=== PATIENT | male | born 1950 | race Caucasian/White ===

== ENCOUNTER 2020-10-26 14:08 | Observation (INO) | payer MEDICARE, SELFPAY ==
[2020-06-22 18:54] VITALS: BMI 49.3
[2020-10-26] VITALS (8 sets, daily range): BP systolic 138–163; BP diastolic 85–91; PULSE 94–108; RESP 18–20; TEMP 36.3–37.1; O2SAT 95–98; BMI 45.0; BMI 43.9
--- NOTE | 2020-10-26 14:24 | CT_ITS ---
STUDY: CTA HEAD AND NECK WITH CONTRAST REASON FOR EXAM: Male, 70 years old. Dizziness, weakness and vertigo today. Hx hypertension, diabetes. RADIATION DOSAGE (If Supplied By Facility): CTDIvol = ( 32.17 ) mGy, DLP = ( 1108.90 ) mGycm TECHNIQUE: CT angiography was performed with a multi-detector CT scanner. Data acquisition was obtained from the skull base through the vertex following intravenous administration of IV 100mL Isovue-370. MIP images were reconstructed from the axial data set. Post-processing of the angiographic images was performed, with multiplanar reformation and 3D reconstruction. Individualized dose optimization techniques were used for this CT. COMPARISON: No relevant priors. FINDINGS: There is calcified plaque formation of the right cavernous carotid artery, without a cross-sectional luminal stenosis. There is calcified plaque formation of the left cavernous carotid artery, without a cross-sectional luminal stenosis. Normal right A1 segments of the anterior cerebral artery. Normal left A1 segments of the anterior cerebral artery. Normal bilateral A2 segments of the anterior cerebral arteries. Normal right M1 and M2 segments of the middle cerebral arteries, with a normal M1 bifurcation. Normal left M1 and M2 segments of the middle cerebral arteries, with a normal M1 bifurcation. Normal right posterior communicating artery (PCOM). Normal left posterior communicating artery (PCOM). Normal basilar artery with a normal basilar bifurcation. The visualized bilateral superior cerebellar (SCA) arteries are normal. Normal bilateral posterior cerebral arteries. RIGHT CAROTID ARTERIES: Normal right common carotid artery (CCA). There is mild atherosclerotic plaque formation with minimal narrowing of the right carotid bulb. Normal origin of the right internal carotid (ICA) artery without a hemodynamically significant stenosis. Normal visualized cervical portion of the right internal carotid artery. LEFT CAROTID ARTERIES: Normal left common carotid artery (CCA). There is mild atherosclerotic plaque formation with minimal narrowing of the left carotid bulb. Normal origin of the left internal carotid (ICA) artery without a hemodynamically significant stenosis. Normal visualized cervical portion of the left internal carotid artery. VERTEBRAL ARTERIES: Normal bilateral vertebral arteries. IMPRESSION: CTA head: No large vessel occlusion. CTA NECK: No occlusion or significant stenosis. Mild atherosclerotic plaque. Electronically Signed: Michelle Gonzalez MD at 15:53 EST Tel , Service support , STUDY: CT BRAIN WITHOUT CONTRAST REASON FOR EXAM: Male, 70 years old. Dizziness, weakness and vertigo today. Hx hypertension, diabetes. RADIATION DOSAGE (If Supplied By Facility): CTDIvol = ( 44.99 ) mGy, DLP = ( 762.36 ) mGycm TECHNIQUE: Transaxial CT imaging of the brain was performed without administration of intravenous contrast material. Individualized dose optimization techniques were used for this CT. COMPARISON: No relevant priors. FINDINGS: Normal size ventricles and extra-axial spaces for the patient''s age. Normal white matter tracts of the cerebral hemispheres. There are bilateral basal ganglia punctate hyperdensities which are likely related to senescent calcifications.. There is no intracranial hemorrhage. There are no findings of an acute ischemic infarction. Normal visualized paranasal sinuses. CT/CTA Head AND Neck W/ Contrast IMPRESSION: No acute intracranial abnormality. Electronically Signed: Michelle Gonzalez MD at 15:55 EST Tel , Service support ,
--- NOTE | 2020-10-26 14:24 | ED.VIS.GEN ---
History of Present Illness Chief Complaint: Weakness Informant: Patient Onset: Today Context: Sudden Onset Current Severity: Mild Maximum Severity: Moderate Narrative: Patient presents secondary to vertigo and vomiting. Patient states he was sitting in his chair talking on the phone when he started feeling everything was moving and he became nauseated. He states he got up to check his blood sugar but his meter was not working correctly. He called his son who advised him to call the ambulance. Patient states when he was being placed into the ambulance he did have vomiting. He states his symptoms currently feels they are improving. He denies chest pain or headache. He denies palpitations. - Past Medical History (1) Diabetes Status: Chronic (2) GERD (gastroesophageal reflux disease) Status: Chronic (3) Osteoarthritis Status: Chronic (4) Hypertension Status: Chronic Past Medical History - Allergies and Home Meds Allergies/Adverse Reactions: Allergies Penicillins Allergy (Severe, Verified 10/26/20 14:12) rash Primary Care Physician: NOT,DEFINED [NON-STAFF] - Prior records reviewed: Yes Smoking Status: Never smoker Review of Systems General: Denies: Chills, Fever Eyes: Denies: Visual changes - bilaterally ENT: Denies: Bilateral ear pain Cardiovascular: Denies: Chest pain, Palpitations Respiratory: Denies: Dyspnea, Cough Gastrointestinal: Reports: Nausea, Vomiting. Denies: Abdominal pain Genitourinary: Denies: Dysuria Musculoskeletal: Denies: Swelling, Extremity Pain Neurological: Reports: Weakness - Generalized weakness. Denies: Headache Hematologic: Denies: Easy bruising, Easy bleeding Allergy: Denies: Uticaria Physical Exam Vital Signs/Narrative: Vital Signs Temp Pulse Resp BP Pulse Ox 10/26/20 14:22 96 10/26/20 14:09 97.4 F L 94 20 H 163/91 H 98 Inital Vital Signs reviewed: Yes General: Well nourished, Well developed Head: Normocephalic Eyes: Perrl, EOMI ENT: Moist mucous membranes Neck: Supple Cardiovascular: Regular rate, Regular rhythm Respiratory: No distress, CTA bilaterally Abdomen: Soft, Nontender, Hypoactive bowel sounds Extremities: Nontender Skin: Normal color Neurological: Alert, Oriented x3, Normal Strength, Normal Sensation Psychological: Normal affect Diagnostic/Tx/Re-eval Impressions Head/Neck CTA 10/26/20 14:24 IMPRESSION: No acute intracranial abnormality. Electronically Signed: Michelle Gonzalez MD at 15:55 EST Tel , Service support , 10/26/20 14:24 CTA Head AND Neck W/ Contrast [CT] Stat Laboratory Results 10/26/20 10/26/20 14:25 14:25 WBC 9.2 RBC 4.54 L Hgb 13.4 Hct 41.5 MCV 91.4 MCH 29.5 MCHC 32.3 RDW Std Deviation 45.0 H RDW Coeff of James 13.4 Plt Count 247 MPV 10.9 Immature Gran % (Auto) 0.400 Neut % (Auto) 76.2 H Lymph % (Auto) 15.2 L [place] % (Auto) 6.1 Eos % (Auto) 1.7 Baso % (Auto) 0.4 Absolute Neuts (auto) 7.0 Absolute Lymphs (auto) 1.40 Nucleated RBC % 0 Sodium 139 Potassium 3.7 Chloride 106 Carbon Dioxide 26.0 Anion Gap 7 BUN 33 H Creatinine 1.29 Estim Creat Clear Calc 55.94 Est GFR (MDRD) Af Amer 71 Est GFR (MDRD) Non-Af 58 L BUN/Creatinine Ratio 25.6 H Glucose 215 H Calcium 8.5 Troponin I < 0.015 - EKG Initial EKG Interpretation: Sinus Rhythm - Sinus at 96 with no acute ischemia. - Medical Decision Making Patient was given a dose of Zofran here. Test results are reviewed with him. I do have concern for central vertigo as the patient had no preceding movement that should have triggered vertigo. Patient was able to get up and ambulate to the restroom here but states he does feel somewhat tipsy still it is not back to his normal baseline. In light of this I will speak with hospitalist regarding admission for MRI and further TIA/stroke work-up. ED Disposition - Plan for ED Patient: Disposition: Acute Care [facility] Diagnosis: Vertigo Referrals: NOT,DEFINED [NON-STAFF] -
[2020-10-26] MEDS: Ondansetron 4 MG/2 ML Vial IV (14:36)
[2020-10-26 14:42] LABS: Basophil# 0.04 X10^3/uL; Basophil% 0.4 % (0-1); Eosinophil# 0.16 X10^3/uL; Eosinophils% 1.7 % (0-5); Hematocrit 41.5 % (40-54); Hemoglobin 13.4 g/dL (13.0-16.5); Lymphocyte % 15.2 % (19-41); Mean Corp Hgb Conc 32.3 g/dL (32-36); Mean Corpuscular Hgb 29.5 pg (27.0-32.0); Mean Corpuscular Volume 91.4 fL (80-94); Mean Platelet Vol. 10.9 fl (6.2-12.0); Monocyte# 0.56 X10^3/uL; Monocyte% 6.1 % (0-10); NRBC Flagged by Analyzer 0 % (0-5); Neutrophil # 7.02 X10^3/uL (2.7-7.7); Neutrophil % 76.2 % (47-70); Platelet Count 247 K/mm3 (150-450); RBC Distribution Width CV 13.4 % (11.6-14.6); Red Blood Count 4.54 M/mm3 (4.6-6.2); White Blood Count 9.2 K/mm3 (4.4-11.0)
[2020-10-26 14:58] LABS: Anion Gap 7 (5-15); BUN 33 mg/dL (7-18); BUN/Creat Ratio 25.6 RATIO (10-20); Calcium,Total 8.5 mg/dL (8.5-10.1); Chloride 106 mmol/L (98-107); Creatinine, Serum 1.29 mg/dL (0.70-1.30); EST Glomerular Filtration Rate 58 mL/min (>60); Est Glom Filt Rate - Afr Amer 71 mL/min (>60); Estimated Creatinine Clearance 55.94 ml/min; Glucose 215 mg/dL (74-106); Potassium 3.7 mmol/L (3.5-5.1); Sodium Level 139 mmol/L (136-145)
--- NOTE | 2020-10-26 16:48 | MRI_ITS ---
STUDY: MRI BRAIN WITHOUT CONTRAST REASON FOR EXAM: Male, 70 years old. Dizziness and vertigo. TECHNIQUE: Standardized multiplanar fat and water weighted pulse sequences were obtained. COMPARISON: CT brain without contrast and CTA head and neck same date. FINDINGS: No acute infarct, hemorrhage, or mass. Small in size and number chronic FLAIR/T2 hyperintensities in the cerebral white matter. Normal brain volume. No midline shift or hydrocephalus. Major flow voids preserved. Paranasal sinuses, mastoid air cells and middle ears with no air-fluid levels. Calvarium unremarkable. Extracranial soft tissues unremarkable. MRI/Brain without Contrast IMPRESSION: No acute findings. Mild chronic microangiopathic change in the white matter. Electronically Signed: Shelton Martin, at 22:21 EST Tel , Service support ,
--- NOTE | 2020-10-26 16:54 | PCS.PANDOC ---
PANDEMIC DOCUMENTATION INITIATED: Date: 10/26/2020 Time: 3076
[2020-10-26] MEDS: 0.9% Normal Saline 1,000 ML 100 ML IV (17:25)
--- NOTE | 2020-10-26 17:28 | PCM.HP.STD ---
History of Present Illness Date of Admission: 10/26/20 Chief Complaint: Vertigo The patient is a 70 year old M with a PMH as below who presents from home with vertigo. He says that he was sitting in his chair talking on the phone when he started to feel dizzy, he also felt flushed. He said that everything was moving around him and he came nauseated and had an episode of emesis. He called the EMS and was brought into the hospital, when he arrived here he still feeling dizzy but he was able to ambulate to the bathroom on his own and was somewhat steady. CTA of the head and neck was unremarkable. Blood sugar on admission is 215 and his other lab work was also unremarkable. He does also complain of his right lower extremity being more swollen and painful than his left lower extremity. He says that swelling is normal for him but not this much. He also has some dyspnea on exertion but no chest pain, cough, shortness of breath. His dyspnea on exertion has been going on for little over a month now. His not having any orthopnea but he lives alone she is not sure if he snores and he says that he gets restful sleep. Past Medical History Past Medical History (Chronic Problems): Chronic Problems (Last Updated 06/22/20 @ 18:59 by Beba Ordaz NP, PELLETIZER OPERATOR-C) GERD (gastroesophageal reflux disease) (Chronic) Hypertension (Chronic) Diabetes (Chronic) Osteoarthritis (Chronic) Medical History: Medical History (Last Updated 06/22/20 @ 18:59 by Beba Ordaz NP, PELLETIZER OPERATOR-C) Diabetes type 2, uncontrolled E11.65 GERD (gastroesophageal reflux disease) K21.9 Hypertension I10 Allergies Penicillins Allergy (Severe, Verified 10/26/20 14:12) rash Home Medications: Ambulatory Orders Medication Instructions Recorded amlodipine 10 mg tablet 10 mg PO DAILY 06/22/20 atorvastatin 20 mg tablet 20 mg PO DAILY 06/22/20 metformin 500 mg tablet 500 mg PO BID 06/22/20 pioglitazone 45 mg tablet 45 mg PO DAILY 06/22/20 valsartan 320 1 tab PO DAILY 06/22/20 mg-hydrochlorothiazide 25 mg tablet Acetaminophen [Tylenol Extra 1,000 mg PO DAILY PRN PRN 10/26/20 Strength] Aspirin [Aspirin, Baby] 81 mg PO DAILY@0800 10/26/20 Naproxen Sodium [Aleve] 440 mg PO DAILY PRN PRN 10/26/20 Pantoprazole Sodium [Protonix] 40 mg PO DAILY 10/26/20 Surgical History: Surgical History (Last Updated 06/22/20 @ 19:00 by Beba Ordaz NP, PELLETIZER OPERATOR-C) workman comp for abd laceration Smoking Status: Never smoker Tobacco Use: Non-smoker Alcohol: None Drugs: None - *Family History Maternal Family History: Family History (Last Updated 06/22/20 @ 19:01 by Beba Ordaz NP, PELLETIZER OPERATOR-C) Mother Heart disease Hypertension Other CAD (coronary artery disease) COPD (chronic obstructive pulmonary disease) Diabetes Lung cancer Review of Systems Constitutional: Denies: Chills, Fever, Weight Change Eyes: Reports: - - Dizziness HEENT: Denies: Head Aches, Sinus Congestion, Sinus Drainage Cardiovascular: Reports: Edema. Denies: Chest Pain, Palpitations Respiratory: Reports: Shortness of breath upon exertion. Denies: Cough, Shortness of Breath, Shortness of breath at rest, Sputum production Gastrointestinal: Denies: Abdominal Pain, Nausea, Vomiting Genitourinary: Denies: Dysuria Musculoskeletal: Denies: Joint Pain, Joint Tenderness Skin: Denies: Rash, Wounds Neurological: Denies: Focal weakness, Numbness, Tingling Psychiatric: Denies: Anxiety, Depression Hematologic/ Lymphatic: Denies: Easy Bruising, Easy Bleeding VTE Information - Inpt Only VTE Present on Admission: No Patient Problems: Active and Suspected Problems (Last Updated 06/22/20 @ 18:59 by Beba Ordaz NP, PELLETIZER OPERATOR-C) Vertigo (Acute) - Physical Exam Vitals/I&O's: Vital Signs Temp Pulse Resp BP Pulse Ox 98.1 F 100 20 H 150/85 H 95 10/26/20 16:57 10/26/20 16:57 10/26/20 16:57 10/26/20 16:57 10/26/20 16:57 Oxygen Delivery Method Room Air Weight: 315 lb Body Mass Index (BMI) 43.9 General: Alert, Oriented x3, Cooperative, No apparent distress HEENT: Atraumatic, PERRLA, EOMI, Normocephalic Oral: Moist Mucosa Neck: Supple, No JVD Lungs: Clear to auscultation, Normal air movement, No rhonchi, No wheeze, No rales Cardiovascular: Regular rate, Regular Rhythm, Normal S1, Normal S2, No murmurs Abdomen: Soft, Non Tender, Non-Distended, No Hepato-splenomegaly, Obese Extremities: Capillary Refill Less than 3 Seconds, Edema - 1+ pitting edema bilaterally Skin: No rashes, No breakdown Neurological: Neuro grossly intact, Sensory exam intact to light touch and pain Psych/Mental Status: Normal Affect, Appropriate Laboratory Results 10/26/20 14:25: WBC 9.2, RBC 4.54 L, Hgb 13.4, Hct 41.5, MCV 91.4, MCH 29.5, MCHC 32.3, RDW Std Deviation 45.0 H, RDW Coeff of James 13.4, Plt Count 247, MPV 10.9, Immature Gran % (Auto) 0.400, Neut % (Auto) 76.2 H, Lymph % (Auto) 15.2 L, [place] % (Auto) 6.1, Eos % (Auto) 1.7, Baso % (Auto) 0.4, Absolute Neuts (auto) 7.0, Absolute Lymphs (auto) 1.40, Nucleated RBC % 0 10/26/20 14:25: Sodium 139, Potassium 3.7, Chloride 106, Carbon Dioxide 26.0, Anion Gap 7, BUN 33 H, Creatinine 1.29, Estim Creat Clear Calc 55.94, Est GFR (MDRD) Af Amer 71, Est GFR (MDRD) Non-Af 58 L, BUN/Creatinine Ratio 25.6 H, Glucose 215 H, Calcium 8.5, Troponin I < 0.015 Current Medications Enoxaparin Sodium (Enoxaparin 40 Mg/0.4 Ml Syringe) 40 mg SC DAILY [facility] Sodium Chloride () 1,000 mls @ 100 mls/hr IV .Q10H [facility] Last Admin: 10/26/20 17:25 Dose: 100 mls/hr Documented by: Meclizine HCl (Meclizine Hcl 25 Mg Tablet) 25 mg PO TID PRN PRN PRN Reason: Vertigo Melatonin (Melatonin 3 Mg Tablet) 3 mg PO QHS PRN PRN PRN Reason: INSOMNIA Ondansetron HCl (Ondansetron 4 Mg/2 Ml Vial) 4 mg IV Q8H PRN PRN PRN Reason: NAUSEA/VOMITING Sodium Chloride (0.9% Saline Lock 10 Ml Syringe) 10 - 40 ml IV UD PRN PRN Reason: SALINE FLUSH Assessment/Plan All Active Problems (Last Updated 06/22/20 @ 18:59 by Beba Ordaz PELLETIZER OPERATOR, PELLETIZER OPERATOR-C) Vertigo (Acute) 1. Vertigo versus presyncope/dyspnea on exertion/lower extremity edema with vascular insufficiency -We will start him on some meclizine and obtain an MRI in the morning -We will continue some IV fluids -If vertigo does not resolve with meclizine may need PT/OT for evaluation and outpatient treatment options -We will obtain a D-dimer to further evaluate this unequal swelling, though he says that he has been having swelling for years and was supposed to get SAMUEL whatley -If his D-dimer is elevated can obtain a CTA of his chest as well as Dopplers of the lower extremities -Will also obtain an echo, as well as a chest x-ray which had not been done in the ER 2. Morbid obesity/HTN/HLD -His BMI is 43.9, discussed lifestyle modifications -Continue with the Norvasc as well as the aspirin, Lipitor, valsartan and hydrochlorothiazide combo -Blood pressure is stable and heart rate is a little high 3. DM 2 -We will hold his home metformin and continue with sliding scale insulin -Accu-Cheks AC at bedtime DVT: Lovenox OBSV E&M: [id number] Initial observation care L2
[2020-10-26 18:56] LABS: D-Dimer Quantitative (DVT/PE) 0.36 FEU/ug/m (0.27-0.49)
--- NOTE | 2020-10-26 19:10 | ECHOCS_ITS ---
Reason For Study: Dyspnea/SOB Procedure This was a 2D Doppler, Color Flow transthoracic echocardiogram. The study was technically difficult. Contrast injection was performed. Exam performed portable in patient room. Left Ventricle Normal LV size. Mild concentric left ventricular hypertrophy. Left ventricular systolic function is normal. The estimated ejection fraction is 65 %. No evidence for diastolic dysfunction. No regional wall motion abnormalities noted. Right Ventricle Normal RV size. Normal systolic function. Atria Normal left atrium. Normal right atrium. No doppler evidence for ASD. Mitral Valve There is no mitral annular calcification. Normal mitral valve. Trivial mitral valve insufficiency. Tricuspid Valve Normal tricuspid valve. Trivial tricuspid valve insufficiency. Unable to estimate RV systolic pressure/pulmonary artery pressure due to technically difficult study. Aortic Valve Trisinus/trileaflet aortic valve. Mild focal aortic valve calcification. Pulmonic Valve The pulmonic valve is not well visualized. Trivial pulmonic valve insufficiency. Great Vessels Normal sized aortic root. Pericardium/Pleural No pericardial effusion. Epicardial fat. Medication Diluted definity 5ml given slow IV push to enhance endocardial definition. MMode/2D Measurements & Calculations LVIDd: 5.7 cm IVSd: 1.3 cm Ao root diam: 3.4 cm LVIDs: 3.9 cm LVPWd: 1.3 cm RVDd: 2.7 cm FS: 31.1 % LAV(MOD-bp): 58.8 ml LA A4 area: 19.9 cm2 LA dimension(2D): 3.8 cm LAV(MOD-bp) Indexed: 23.0 ml/m2 LAV(MOD-sp2): 54.1 ml LAV(MOD-sp4): 60.1 ml RA A4 area: 11.8 cm2 Doppler Measurements & Calculations MV E max slava: 56.7 cm/sec Lat Peak E' Slava: 9.6 cm/sec Med Peak E' Slava: 7.0 cm/sec MV A max slava: 80.7 cm/sec E/E' lat: 5.9 E/E' med: 8.1 MV E/A: 0.70 Ao V2 max: 167.9 cm/sec LV V1 max: 96.5 cm/sec PA V2 max: 135.2 cm/sec Ao max P.3 mmHg LV V1 max P.7 mmHg Ao V2 mean: 123.8 cm/sec Ao mean P.6 mmHg Ao V2 VTI: 32.7 cm Interpretation Summary The study was technically difficult. Contrast injection was performed. Left ventricular systolic function is normal. The estimated ejection fraction is 65 %. Mild concentric left ventricular hypertrophy. Trivial mitral valve insufficiency. Trivial tricuspid valve insufficiency. Mild focal aortic valve calcification. Trivial pulmonic valve insufficiency. Epicardial fat. Unable to estimate RV systolic pressure/pulmonary artery pressure due to technically difficult study. No evidence for diastolic dysfunction. Ordering Physician: Deangelo Cisse Referring Physician: Timothy Ortega Performed By: Nichelle Marcelo, TINY, RVT
--- NOTE | 2020-10-26 19:40 | RAD_ITS ---
STUDY: X-RAY CHEST REASON FOR EXAM: Male, 70 years old. Dyspnea on exertion. TECHNIQUE: PA and lateral COMPARISON: None. FINDINGS: No evidence of pneumonia, pulmonary edema, pneumothorax or pleural effusion. Cardiac silhouette, hilar and mediastinal contours with no acute findings. Upper normal heart size. Atherosclerosis and ectasia of the thoracic aorta. Degenerative osseous changes with no acute osseous abnormality. RAD/Chest PA and Lateral IMPRESSION: No acute findings. Electronically Signed: Shelton Martin, at 6:32 EST Tel , Service support ,
[2020-10-26] MEDS: Insulin Lispro 100 UNIT/ML INSULN.PEN SC (21:18)
[2020-10-26 21:36] LABS: Bedside Glucose 237 mg/dL (70-110)
[2020-10-27 00:01] VITALS: BP 127/82; PULSE 68; RESP 16; TEMP 36.9; O2SAT 96
[2020-10-27 03:00] VITALS: PULSE 62
[2020-10-27] MEDS: 0.9% Normal Saline 1,000 ML 100 ML IV (03:30)
[2020-10-27 05:01] LABS: Absolute Lymphocyte Count 1.31 X10^3/uL (0.83-4.51); Absolute Neutrophil Count 5.3 X10^3/uL (2.0-7.7); Basophil# 0.02 X10^3/uL; Basophil% 0.3 % (0-1); Eosinophil# 0.15 X10^3/uL; Hematocrit 39.6 % (40-54); Hemoglobin 12.7 g/dL (13.0-16.5); Lymphocyte # 1.31 X10^3/ul (4.0); Lymphocyte % 17.6 % (19-41); Mean Corp Hgb Conc 32.1 g/dL (32-36); Mean Corpuscular Hgb 29.7 pg (27.0-32.0); Mean Corpuscular Volume 92.5 fL (80-94); Mean Platelet Vol. 11.2 fl (6.2-12.0); Monocyte# 0.63 X10^3/uL; Monocyte% 8.4 % (0-10); NRBC Flagged by Analyzer 0 % (0-5); Neutrophil # 5.33 X10^3/uL (2.7-7.7); Neutrophil % 71.4 % (47-70); Platelet Count 244 K/mm3 (150-450); RBC Distribution Width CV 13.6 % (11.6-14.6); RBC Distribution Width SD 46.2 fl (35.1-43.9); Red Blood Count 4.28 M/mm3 (4.6-6.2); White Blood Count 7.5 K/mm3 (4.4-11.0)
[2020-10-27 05:14] LABS: Anion Gap 7 (5-15); BUN 30 mg/dL (7-18); BUN/Creat Ratio 23.3 RATIO (10-20); Calcium,Total 8.4 mg/dL (8.5-10.1); Chloride 108 mmol/L (98-107); Creatinine, Serum 1.29 mg/dL (0.70-1.30); EST Glomerular Filtration Rate 58 mL/min (>60); Est Glom Filt Rate - Afr Amer 71 mL/min (>60); Estimated Creatinine Clearance 55.94 ml/min; Glucose 107 mg/dL (74-106); Potassium 3.7 mmol/L (3.5-5.1); Sodium Level 142 mmol/L (136-145)
[2020-10-27 06:00] VITALS: BP 145/76; PULSE 63; RESP 16; TEMP 36.4; O2SAT 96
[2020-10-27 06:45] LABS: Bedside Glucose 106 mg/dL (70-110)
[2020-10-27 06:59] VITALS: PULSE 66
[2020-10-27] MEDS: Enoxaparin 40 MG/0.4 ML Syringe SC (08:07)
[2020-10-27] MEDS: Furosemide 40 MG/4 ML Vial IV (08:07)
[2020-10-27] MEDS: 0.9% Saline Lock 10 ML Syringe IV (08:07)
[2020-10-27 11:10] VITALS: BP 157/73; PULSE 70; RESP 14; TEMP 36.7; O2SAT 95
[2020-10-27 11:10] LABS: Bedside Glucose 281 mg/dL (70-110)
[2020-10-27] MEDS: Insulin Lispro 100 UNIT/ML INSULN.PEN SC (11:17)
--- NOTE | 2020-10-27 15:39 | PCM.DC ---
- Discharge Diagnoses Current Active Problems: Current Active and Chronic Problems (Last Updated 06/22/20 @ 18:59 by Beba Ordaz NP, CORPORATE TRAVEL CONSULTANT-C) Vertigo (Acute) GERD (gastroesophageal reflux disease) (Chronic) Hypertension (Chronic) Diabetes (Chronic) Osteoarthritis (Chronic) You will use the following diet at home:: Calorie/Carbohydrate Controlled (specify 1200, 1400, etc) - 1800, Cardiac Your food should be the consistency of: Regular Your liquids should be the consistency of: Regular/Thin Discharge Activity: Return to Normal Activity Call your doctor if you observe: Fever of 101 or Higher, Shortness of breath, Dizziness, Fainting spells, Swelling in the ankles, Chest pain, Increased palpitations (irregular heartbeat) Allergies/Adverse Reactions: Allergies Penicillins Allergy (Severe, Verified 10/26/20 14:12) rash Medications to take at Discharge amlodipine 10 mg tablet 10 mg PO DAILY 06/22/20 atorvastatin 20 mg tablet 20 mg PO DAILY 06/22/20 metformin 500 mg tablet 500 mg PO BID 06/22/20 pioglitazone 45 mg tablet 45 mg PO DAILY 06/22/20 valsartan 320 mg-hydrochlorothiazide 25 mg tablet 1 tab PO DAILY 06/22/20 Acetaminophen [Tylenol Extra Strength] 1,000 mg PO DAILY PRN PRN 10/26/20 Aspirin [Aspirin, Baby] 81 mg PO DAILY@0800 10/26/20 Naproxen Sodium [Aleve] 440 mg PO DAILY PRN PRN 10/26/20 Pantoprazole Sodium [Protonix] 40 mg PO DAILY 10/26/20 Primary Care Physician: NOT,DEFINED [NON-STAFF] - Please follow up with your Primary Care Physician in: 3-5 days Test Results: Test results from this visit will be discussed in further detail at your follow-up appointment, if applicable.
--- NOTE | 2020-10-27 15:40 | DS.PCM_ITS ---
Discharge Date and Diagnosis - Problem List Patient Problems: Active and Suspected Problems (Last Updated 06/22/20 @ 18:59 by Beba Ordaz NP, AUTOMOTIVE REFINISH TECHNICIAN-C) Vertigo (Acute) Date of Admission: 10/26/20 Date of Discharge: 10/27/20 - Primary Discharge Diagnosis Acute Problems: Active Problems (Last Updated 06/22/20 @ 18:59 by Beba Ordaz NP, AUTOMOTIVE REFINISH TECHNICIAN-C) Vertigo (Acute) - Secondary Discharge Diagnosis Chronic Problems: Chronic Problems (Last Updated 06/22/20 @ 18:59 by Beba Ordaz NP, AUTOMOTIVE REFINISH TECHNICIAN-C) GERD (gastroesophageal reflux disease) (Chronic) Hypertension (Chronic) Diabetes (Chronic) Osteoarthritis (Chronic) Hospital Course and Treatment Imaging Results: Clinical Impression(s) from Imaging Studies Head/Neck CTA 10/26/20 14:24 IMPRESSION: No acute intracranial abnormality. Electronically Signed: Michelle Gonzalez MD at 15:55 EST Tel , Service support , Brain MRI 10/26/20 16:48 IMPRESSION: No acute findings. Mild chronic microangiopathic change in the white matter. Electronically Signed: Shelton Martin, at 22:21 EST Tel , Service support , Chest X-Ray 10/26/20 19:40 IMPRESSION: No acute findings. Electronically Signed: Shelton Martin at 6:32 EST Tel , Service support , Echo: Interpretation Summary The study was technically difficult. Contrast injection was performed. Left ventricular systolic function is normal. The estimated ejection fraction is 65 %. Mild concentric left ventricular hypertrophy. Trivial mitral valve insufficiency. Trivial tricuspid valve insufficiency. Mild focal aortic valve calcification. Trivial pulmonic valve insufficiency. Epicardial fat. Unable to estimate RV systolic pressure/pulmonary artery pressure due to technically difficult study. No evidence for diastolic dysfunction. Operations: None Procedures: 2-D Echocardiogram Summary of Care Provided: Per HPI: The patient is a 70 year old M with a PMH as below who presents from home with vertigo. He says that he was sitting in his chair talking on the phone when he started to feel dizzy, he also felt flushed. He said that everything was moving around him and he came nauseated and had an episode of emesis. He called the EMS and was brought into the hospital, when he arrived here he still feeling dizzy but he was able to ambulate to the bathroom on his own and was somewhat steady. CTA of the head and neck was unremarkable. Blood sugar on admission is 215 and his other lab work was also unremarkable. He does also complain of his right lower extremity being more swollen and painful than his left lower extremity. He says that swelling is normal for him but not this much. He also has some dyspnea on exertion but no chest pain, cough, shortness of breath. His dyspnea on exertion has been going on for little over a month now. His not having any orthopnea but he lives alone she is not sure if he snores and he says that he gets restful sleep. Hospital Course: 1. Vertigo versus presyncope/dyspnea on exertion/lower extremity edema with vascular insufficiency -He did need to use any meclizine and had resolution of his symptoms, an MRI was unremarkable and did not demonstrate a stroke -He was given some IV fluids however once the MRI came back negative as a stroke we did give him a dose of Lasix to see if may be with his dyspnea on exertion it was secondary to heart failure, however he did have his echo which was a normal EF with no diastolic dysfunction, there is still a possibility of pulmonary hypertension however this cannot be evaluated given difficulty of the study. My recommendation would be that he follow-up with his primary care doctor if he continues to have this issue with dyspnea on exertion to be trialed on a low- dose p.o. Lasix. He did not express that a single dose of Lasix helped him in any significant way though. -D-dimer was negative therefore I do not feel it is necessary to obtain vascular studies of his legs or CTA of his chest -Based on the normal echo and the negative MRI, it does seem like this episode was a vasovagal presyncopal episode -I discussed with him the plan for discharge in expressed understanding of the risk and benefits of going home and would like to go home. 2. Morbid obesity/HTN/HLD -His BMI is 43.9, discussed lifestyle modifications -Continue with the Norvasc as well as the aspirin, Lipitor, valsartan and hydrochlorothiazide combo -Based on his lower extremity swelling may need to decrease the dose of Norvasc and increase his other blood pressure medications -Blood pressure is stable and heart rate is a little high 3. DM 2 -We will hold his home metformin and continue with sliding scale insulin -Accu-Cheks AC at bedtime Patient Problems: Active and Suspected Problems (Last Updated 06/22/20 @ 18:59 by Beba Ordaz AUTOMOTIVE REFINISH TECHNICIAN, AUTOMOTIVE REFINISH TECHNICIAN-C) Vertigo (Acute) - Physical Exam Vitals/I&O's: Vital Signs Temp Pulse Resp BP Pulse Ox 98.1 F 70 14 157/73 H 95 10/27/20 11:10 10/27/20 11:10 10/27/20 11:10 10/27/20 11:10 10/27/20 11:10 Oxygen Delivery Method Room Air Weight: 315 lb Body Mass Index (BMI) 43.9 Intake and Output for Last 24 Hours 10/25/20 10/26/20 10/27/20 23:59 23:59 23:59 Intake Total 203.33 / 423.33 2108.33 / 2108.33 Output Total 900 / 900 Balance 203.33 / 423.33 1208.33 / 1208.33 General: Alert, Oriented x3, Cooperative, No apparent distress HEENT: Atraumatic, PERRLA, EOMI, Normocephalic Oral: Moist Mucosa Neck: Supple, No JVD Lungs: Clear to auscultation, Normal air movement, No rhonchi, No wheeze, No rales Cardiovascular: Regular rate, Regular Rhythm, Normal S1, Normal S2, No murmurs Abdomen: Soft, Non Tender, Non-Distended, No Hepato-splenomegaly, Obese Extremities: Capillary Refill Less than 3 Seconds, Edema - 1+ pitting edema bilaterally Skin: No rashes, No breakdown Neurological: Neuro grossly intact, Sensory exam intact to light touch and pain Psych/Mental Status: Normal Affect, Appropriate Laboratory Results 10/26/20 14:25: D-Dimer Quant (PE/DVT) 0.36 10/26/20 21:15: POC Glucose 237 H 10/27/20 04:30: WBC 7.5, RBC 4.28 L, Hgb 12.7 L, Hct 39.6 L, MCV 92.5, MCH 29.7, MCHC 32.1, RDW Std Deviation 46.2 H, RDW Coeff of James 13.6, Plt Count 244, MPV 11.2, Immature Gran % (Auto) 0.300, Neut % (Auto) 71.4 H, Lymph % (Auto) 17.6 L, [place] % (Auto) 8.4, Eos % (Auto) 2.0, Baso % (Auto) 0.3, Absolute Neuts (auto) 5.3, Absolute Lymphs (auto) 1.31, Nucleated RBC % 0 10/27/20 04:30: Sodium 142, Potassium 3.7, Chloride 108 H, Carbon Dioxide 27.0, Anion Gap 7, BUN 30 H, Creatinine 1.29, Estim Creat Clear Calc 55.94, Est GFR (MDRD) Af Amer 71, Est GFR (MDRD) Non-Af 58 L, BUN/Creatinine Ratio 23.3 H, Glucose 107 H, Calcium 8.4 L 10/27/20 06:31: POC Glucose 106 10/27/20 11:06: POC Glucose 281 H Current Medications Dextrose (Dextrose 50%-Water 25 Gm/50 Ml Disp.Syrin) 0 gm IV X1 PRN; Protocol PRN Reason: Hypoglycemia Enoxaparin Sodium (Enoxaparin 40 Mg/0.4 Ml Syringe) 40 mg SC DAILY [facility] Last Admin: 10/27/20 08:07 Dose: 40 mg Documented by: Glucagon (Glucagon 1 Mg/Ml Syringe) 1 mg IM .X1 PRN PRN Reason: Hypoglycemia Insulin Glargine (Insulin Glargine 100 Units/Ml Pen) 5 units SC QHS [facility] Last Admin: 10/26/20 21:19 Dose: 5 u Documented by: Insulin Human Lispro (Insulin Lispro 100 Unit/Ml Insuln.Pen) 0 unit SC ACHS [facility]; Protocol Last Admin: 10/27/20 11:17 Dose: 6 u Documented by: Meclizine HCl (Meclizine Hcl 25 Mg Tablet) 25 mg PO TID PRN PRN PRN Reason: Vertigo Melatonin (Melatonin 3 Mg Tablet) 3 mg PO QHS PRN PRN PRN Reason: INSOMNIA Ondansetron HCl (Ondansetron 4 Mg/2 Ml Vial) 4 mg IV Q8H PRN PRN PRN Reason: NAUSEA/VOMITING Sodium Chloride (0.9% Saline Lock 10 Ml Syringe) 10 - 40 ml IV UD PRN PRN Reason: SALINE FLUSH Last Admin: 10/27/20 08:07 Dose: 20 ml Documented by: Discharge Activity: Return to Normal Activity Call your doctor if you observe: Fever of 101 or Higher, Shortness of breath, Dizziness, Fainting spells, Swelling in the ankles, Chest pain, Increased palpitations (irregular heartbeat) Home Medications: Medications to take at Discharge amlodipine 10 mg tablet 10 mg PO DAILY 06/22/20 atorvastatin 20 mg tablet 20 mg PO DAILY 06/22/20 metformin 500 mg tablet 500 mg PO BID 06/22/20 pioglitazone 45 mg tablet 45 mg PO DAILY 06/22/20 valsartan 320 mg-hydrochlorothiazide 25 mg tablet 1 tab PO DAILY 06/22/20 Acetaminophen [Tylenol Extra Strength] 1,000 mg PO DAILY PRN PRN 10/26/20 Aspirin [Aspirin, Baby] 81 mg PO DAILY@0800 10/26/20 Naproxen Sodium [Aleve] 440 mg PO DAILY PRN PRN 10/26/20 Pantoprazole Sodium [Protonix] 40 mg PO DAILY 10/26/20 Primary Care Physician: NOT,DEFINED [NON-STAFF] - Please follow up with your Primary Care Physician in: 3-5 days Disposition: Home Minutes spent on discharge:: 35 Patient Condition:: Stable Medical Necessity - Tobacco Use Smoking Status: Never smoker Tobacco Use: Non-smoker Meaningful Use Info Meaningful Use Diagnoses (Choose all that apply): None applicable OBSV E&M: 17663 Observation care discharge
[2020-10-27 16:47] VITALS: BP 156/79; PULSE 77; RESP 17; TEMP 36.9; O2SAT 97
== END 2020-10-27 18:04 | disposition home or self-care (01) ==
LOC: ED 16:03 → PCU 16:57
PROVIDERS: Admitting Provider Family Medicine; Emergency Provider Emergency Medicine; PCP Internal Medicine; Visit Provider Family Medicine
DX: R42 Dizziness and giddiness (principal); K21.9 Gastro-esophageal reflux disease without esophagitis; M19.90 Unspecified osteoarthritis, unspecified site; E11.9 Type 2 diabetes mellitus without complications; I10 Essential (primary) hypertension; R53.1 Weakness; Z79.899 Other long term (current) drug therapy; Z79.82 Long term (current) use of aspirin; Z79.84 Long term (current) use of oral hypoglycemic drugs; E66.01 Morbid (severe) obesity due to excess calories; E78.5 Hyperlipidemia, unspecified; Z68.41 Body mass index [BMI] 40.0-44.9, adult
CPT/HCPCS: 36415; 70496; 70498; 70551; 71046; 80048; 82962; 84484; 85025; 85379; 93005; 93306; 96361; 96372; 96374; 96375; 97161; 99218; 99285; J7030; Q9957; Q9967; A4216; C8929; G0378; J1940; J2405

== ENCOUNTER → 2021-09-01 | Outpatient (CLI) | payer MEDICARE, SELFPAY ==
[2021-09-01 21:49] LABS: Absolute Lymphocyte Count 1.27 X10^3/uL (0.83-4.51); Absolute Neutrophil Count 6.5 X10^3/uL (2.0-7.7); Basophil# 0.05 X10^3/uL; Basophil% 0.6 % (0-1); Eosinophil# 0.07 X10^3/uL; Eosinophils% 0.8 % (0-5); Hematocrit 44.9 % (40-54); Lymphocyte # 1.27 X10^3/ul (0.83-4.51); Lymphocyte % 15.1 % (19-41); Mean Corp Hgb Conc 31.2 g/dL (32-36); Mean Corpuscular Volume 93.2 fL (80-94); Mean Platelet Vol. 11.9 fl (6.2-12.0); Monocyte# 0.53 X10^3/uL; Monocyte% 6.3 % (0-10); NRBC Flagged by Analyzer 0 % (0-5); Neutrophil # 6.47 X10^3/uL (2.7-7.7); Platelet Count 315 K/mm3 (150-450); RBC Distribution Width SD 47.6 fl (35.1-43.9); Red Blood Count 4.82 M/mm3 (4.6-6.2); White Blood Count 8.4 K/mm3 (4.4-11.0)
[2021-09-01 22:04] LABS: ALB/GLOB Ratio 0.9 RATIO (0.9-2.4); AST(SGOT) 16 U/L (15-37); Alanine Aminotransfer ALT/SGPT 21 U/L (16-61); Albumin, Serum 3.6 g/dL (3.2-5.0); Alkaline Phosphatase 106 U/L (45-117); Anion Gap 8 (5-15); BUN 26 mg/dL (7-18); BUN/Creat Ratio 17.9 RATIO (10-20); Calcium,Total 8.7 mg/dL (8.5-10.1); Chloride 104 mmol/L (98-107); Cholesterol 175 mg/dL (200); Creatinine, Serum 1.45 mg/dL (0.70-1.30); EST Glomerular Filtration Rate 51 mL/min (>60); Est Glom Filt Rate - Afr Amer 61 mL/min (>60); Globulin 4.1 g/dL (2.2-4.2); Glucose 156 mg/dL (74-106); High Density Lipoprotein 39 mg/dL; PSA,Total - Annual Screen 1.18 ng/mL (0.00-4.00); Potassium 3.9 mmol/L (3.5-5.1); Protein, Total 7.7 g/dL (6.4-8.2); Sodium Level 138 mmol/L (136-145); Triglycerides 328 mg/dL; Uric Acid 9.4 mg/dL (3.5-7.2); Very Low Density Lipoprotein 66 mg/dL (5-40)
[2021-09-01 22:20] LABS: Hemoglobin A1c 7.2 % (3.8-5.6)
[2021-09-04 15:07] LABS: ANTINUCLEAR ANTIBODIES DIRECT Positive (Negative); Anti-Centromere B Ab <0.2 AI (0.0-0.9); Anti-Chromatin <0.2 AI (0.0-0.9); Anti-Jo <0.2 AI (0.0-0.9); Anti-Scleroderma-70 AB <0.2 AI (0.0-0.9); RNP Ab 1.1 AI (0.0-0.9); SJOGREN'S Anti-SS-A test < 0.2 AI (0.0-0.9); SJOGREN'S Anti-SS-B test < 0.2 AI (0.0-0.9); Smith Ab <0.2 AI (0.0-0.9)
[2021-09-06 15:01] LABS: Anti-dsDNA Ab <1 IU/mL (0-9)
== END | disposition home or self-care (01) ==
PROVIDERS: PCP Internal Medicine; Referring Provider Nurse Practitioner; Visit Provider Nurse Practitioner
DX: R35.0 Frequency of micturition (principal); I10 Essential (primary) hypertension; E11.9 Type 2 diabetes mellitus without complications; M10.9 Gout, unspecified; M17.11 Unilateral primary osteoarthritis, right knee; Z12.5 Encounter for screening for malignant neoplasm of prostate
CPT/HCPCS: 80053; 80061; 83036; 84153; 84550; 85025; 86038; 86225; 86235; G0103

== ENCOUNTER → 2022-05-11 | Outpatient (CLI) | payer MEDICARE, SELFPAY ==
[2022-05-11 23:08] LABS: AST(SGOT) 17 U/L (15-37); Alanine Aminotransfer ALT/SGPT 17 U/L (16-61); Albumin, Serum 3.8 g/dL (3.2-5.0); Alkaline Phosphatase 110 U/L (45-117); Anion Gap 8 (5-15); BUN 32 mg/dL (7-18); BUN/Creat Ratio 15.7 RATIO (10-20); Chloride 104 mmol/L (98-107); Creatinine, Serum 2.04 mg/dL (0.70-1.30); EST Glomerular Filtration Rate 34 mL/min (>60); Est Glom Filt Rate - Afr Amer 41 mL/min (>60); Globulin 3.7 g/dL (2.2-4.2); Glucose 166 mg/dL (74-106); PSA,Total- Diagnostic 1.38 ng/mL (0.0-4.0); Potassium 4.1 mmol/L (3.5-5.1); Protein, Total 7.5 g/dL (6.4-8.2); Sodium Level 137 mmol/L (136-145)
== END | disposition home or self-care (01) ==
LOC: LABSPEC 22:25
PROVIDERS: Visit Provider Nurse Practitioner
DX: R31.9 Hematuria, unspecified (principal); I10 Essential (primary) hypertension; M19.90 Unspecified osteoarthritis, unspecified site
CPT/HCPCS: 80053; 84153; 84550; 87086; 87088

== ENCOUNTER → 2022-05-12 | Outpatient (CLI) | payer MEDICARE, SELFPAY | END | disposition home or self-care (01) | LOC: LABSPEC 07:31 | PROVIDERS: PCP Internal Medicine; Referring Provider Nurse Practitioner; Visit Provider Nurse Practitioner | DX: R31.9 Hematuria, unspecified (principal); E11.9 Type 2 diabetes mellitus without complications; I10 Essential (primary) hypertension; M19.90 Unspecified osteoarthritis, unspecified site ==

== ENCOUNTER → 2022-07-26 | Outpatient (CLI) | payer MEDICARE, SELFPAY ==
[2022-07-26 22:15] LABS: Absolute Lymphocyte Count 1.25 X10^3/uL (0.83-4.51); Absolute Neutrophil Count 6.1 X10^3/uL (2.0-7.7); Basophil# 0.05 X10^3/uL; Basophil% 0.6 % (0-1); Eosinophil# 0.09 X10^3/uL; Eosinophils% 1.1 % (0-5); Hematocrit 41.3 % (40-54); Hemoglobin 13.1 g/dL (13.0-16.5); Lymphocyte # 1.25 X10^3/ul (0.83-4.51); Lymphocyte % 15.6 % (19-41); Mean Corp Hgb Conc 31.7 g/dL (32-36); Mean Corpuscular Hgb 29.5 pg (27.0-32.0); Mean Platelet Vol. 12.8 fl (6.2-12.0); Monocyte% 6.3 % (0-10); NRBC Flagged by Analyzer 0 % (0-5); Neutrophil # 6.08 X10^3/uL (2.7-7.7); Platelet Count 270 K/mm3 (150-450); RBC Distribution Width SD 51.7 fl (35.1-43.9); Red Blood Count 4.44 M/mm3 (4.6-6.2)
[2022-07-26 22:42] LABS: AST(SGOT) 15 U/L (15-37); Alanine Aminotransfer ALT/SGPT 19 U/L (16-61); Albumin, Serum 3.4 g/dL (3.2-5.0); Alkaline Phosphatase 111 U/L (45-117); Anion Gap 10 (5-15); BUN 16 mg/dL (7-18); BUN/Creat Ratio 11.6 RATIO (10-20); Calcium,Total 8.7 mg/dL (8.5-10.1); Chloride 108 mmol/L (98-107); Cholesterol 145 mg/dL (200); Creatinine, Serum 1.38 mg/dL (0.70-1.30); EST Glomerular Filtration Rate 54 mL/min (>60); Est Glom Filt Rate - Afr Amer 65 mL/min (>60); Globulin 3.5 g/dL (2.2-4.2); Glucose 141 mg/dL (74-106); High Density Lipoprotein 37 mg/dL; Potassium 4.4 mmol/L (3.5-5.1); Protein, Total 6.9 g/dL (6.4-8.2); Sodium Level 143 mmol/L (136-145); Triglycerides 174 mg/dL; Very Low Density Lipoprotein 35 mg/dL (5-40)
[2022-07-26 22:56] LABS: Hemoglobin A1c 6.5 % (3.8-5.6)
== END | disposition home or self-care (01) ==
PROVIDERS: PCP Internal Medicine; Visit Provider Nurse Practitioner
DX: I48.91 Unspecified atrial fibrillation (principal); I48.92 Unspecified atrial flutter; E11.9 Type 2 diabetes mellitus without complications; I10 Essential (primary) hypertension; M10.9 Gout, unspecified
CPT/HCPCS: 80053; 80061; 83036; 85025; 86141

== ENCOUNTER → 2022-07-31 | Outpatient (CLI) | payer MEDICARE, SELFPAY ==
[2022-07-31 14:03] LABS: Thyroid Stim Hormone (TSH) 3.04 uIU/mL (0.358-3.74)
== END | disposition home or self-care (01) ==
LOC: LAB 11:43
PROVIDERS: PCP Nurse Practitioner; Referring Provider Internal Medicine Cardiovascular Disease; Visit Provider Internal Medicine Cardiovascular Disease
DX: M35.1 Other overlap syndromes (principal)
CPT/HCPCS: 36415; 84443

== ENCOUNTER → 2022-08-15 | Outpatient (CLI) | payer MEDICARE, SELFPAY ==
--- NOTE | 2022-08-15 07:10 | ECHOCS_ITS ---
Reason For Study: Afib, Aflutter Procedure This was a 2D Doppler, Color Flow transthoracic echocardiogram. Contrast injection was performed. Exam performed in department. Left Ventricle Normal LV size. Moderate concentric left ventricular hypertrophy. The left ventricular ejection fraction is 55 %. Diastolic function is indeterminate. Right Ventricle Normal right ventricle. Atria The left atrium is mildly enlarged. Normal right atrium. Mitral Valve Trivial mitral valve insufficiency. Tricuspid Valve Trivial tricuspid valve insufficiency. Aortic Valve Aortic sclerosis, no stenosis. Pulmonic Valve Trivial eccentric pulmonic valve insufficiency. Great Vessels Normal sized aortic root. Pericardium/Pleural No pericardial effusion. Medication Diluted definity 3ml given slow IV push to enhance endocardial definition. MMode/2D Measurements & Calculations LVIDd: 5.5 cm IVSd: 1.4 cm Ao root diam: 3.2 cm LVIDs: 3.5 cm LVPWd: 1.5 cm RVDd: 4.4 cm FS: 36.0 % LAV(MOD-bp): 66.5 ml LVAd ap4: 38.7 cm2 SV(MOD-sp4): 88.8 ml LAV(MOD-bp) Indexed: 28.9 ml/m2 LVLd ap4: 8.2 cm LAV(MOD-sp2): 59.8 ml EDV(MOD-sp4): 152.3 ml LAV(MOD-sp4): 72.3 ml EDV(sp4-el): 155.4 ml LVAs ap4: 22.6 cm2 LVLs ap4: 7.1 cm ESV(MOD-sp4): 63.5 ml ESV(sp4-el): 61.2 ml EF(MOD-sp4): 58.3 % EF(sp4-el): 60.6 % SV(sp4-el): 94.2 ml LA A4 area: 23.4 cm2 LA dimension(2D): 4.3 cm RA A4 area: 15.8 cm2 Doppler Measurements & Calculations MV E max salas: 119.6 cm/sec Ao V2 max: 159.5 cm/sec LV V1 max: 88.9 cm/sec Ao max P.3 mmHg LV V1 max P.2 mmHg Ao V2 mean: 115.4 cm/sec Ao mean P.8 mmHg Ao V2 VTI: 30.8 cm PA V2 max: 152.0 cm/sec TR max salas: 214.9 cm/sec TR max P.5 mmHg ECHO/Echo Complete W/ Contrast Interpretation Summary The left atrium is mildly enlarged. The left ventricular ejection fraction is 55 %. Moderate concentric left ventricular hypertrophy. Diastolic function is indeterminate. Aortic sclerosis, no stenosis. Ordering Physician: Sofía Melara Referring Physician: Beba Ordaz Performed By: Nichelle Marcelo, TINY, RVT
--- NOTE | 2022-08-15 12:40 | STRESSREP_ITS ---
Stress Test Report Date: 08/15/2022 Procedure: Pharmacologic stress nuclear imaging study Indications: Atrial fibrillation Consent: Per the patient Procedure: The patient underwent pharmacologic (Regadenoson 0.4mg ) evaluation with a peak heart rate of 150 beats per minute (70%predicted maximal heart rate) and a peak blood pressure of 140/70 mmHg. The baseline ECG demonstrated atrial fibrillation. The peak pharmacologic ECG demonstrated no ischemic change. The patient was injected with 14.9 millicuries of technetium 99m Cardiolite and subsequently rest SPECT Cardiolite nuclear imaging was obtained in the horizontal long, vertical long, and short axis views. The patient underwent pharmacologic (Regadenoson) evaluation. The patient was injected with 44 point millicuries of technetium 99m Cardiolite and subsequently stress SPECT Cardiolite nuclear imaging was obtained in the horizontal long, vertical long, and short axis views. A gated Cardiolite study at peak stress was obtained. The examination was stopped secondary to completion of protocol. Rest and stress SPECT Cardiolite nuclear imaging status post realignment, normalization, and attenuation correction demonstrate uniform tracer uptake. There is end systolic thickening and brightening. The gated Cardiolite study demonstrates myocardial thickening and inward wall motion. The reported LVEF is 59%. Impression: 1. Pharmacologic (Regadenoson) evaluation 2. Peak pharmacologic ECG with no ischemic change. 3. There were no cardiac dysrhythmias pretest, during pharmacologic infusion, or recovery. 5. No fixed or reversible defects. 6. The gated Cardiolite study reports an LVEF of 59%. This note was generated with [employer] software. It may contain incorrect words, spelling, and punctuation that were not noted in checking the note before signing.
== END | disposition home or self-care (01) ==
PROVIDERS: PCP Nurse Practitioner; Referring Provider Internal Medicine Cardiovascular Disease; Visit Provider Internal Medicine Cardiovascular Disease
DX: I48.91 Unspecified atrial fibrillation (principal); I70.0 Atherosclerosis of aorta; I48.92 Unspecified atrial flutter; R00.2 Palpitations; I51.7 Cardiomegaly
CPT/HCPCS: 78452; 93017; 93306; Q9957; A4216; C8929; J2785

== ENCOUNTER → 2022-09-28 | Outpatient (CLI) | payer MEDICARE, SELFPAY ==
[2022-09-28 23:30] LABS: ALB/GLOB Ratio 1.1 RATIO (0.9-2.4); AST(SGOT) 15 U/L (15-37); Alanine Aminotransfer ALT/SGPT 19 U/L (16-61); Albumin, Serum 3.7 g/dL (3.2-5.0); Alkaline Phosphatase 95 U/L (45-117); Anion Gap 6 (5-15); BUN 24 mg/dL (7-18); BUN/Creat Ratio 17.3 RATIO (10-20); CRP, High Sensitivity Cardiac 7.58 mg/L; Calcium,Total 8.5 mg/dL (8.5-10.1); Chloride 110 mmol/L (98-107); Creatinine, Serum 1.39 mg/dL (0.70-1.30); EST Glomerular Filtration Rate 53 mL/min (>60); Est Glom Filt Rate - Afr Amer 64 mL/min (>60); Globulin 3.3 g/dL (2.2-4.2); Glucose 122 mg/dL (74-106); Potassium 4.1 mmol/L (3.5-5.1); Sodium Level 141 mmol/L (136-145); Uric Acid 5.1 mg/dL (3.5-7.2)
[2022-09-28 23:38] LABS: Hemoglobin A1c 5.9 % (3.8-5.6)
== END | disposition home or self-care (01) ==
PROVIDERS: PCP Nurse Practitioner; Visit Provider Nurse Practitioner
DX: M10.9 Gout, unspecified (principal); I48.92 Unspecified atrial flutter; I48.91 Unspecified atrial fibrillation; E11.9 Type 2 diabetes mellitus without complications; E66.9 Obesity, unspecified; R00.2 Palpitations
CPT/HCPCS: 80053; 83036; 84550; 86141

== ENCOUNTER → 2023-09-04 | Outpatient (CLI) | payer MEDICARE, SELFPAY ==
[2023-09-04 21:35] LABS: Absolute Lymphocyte Count 1.17 X10^3/uL (0.83-4.51); Basophil# 0.04 X10^3/uL; Basophil% 0.6 % (0-1); Eosinophil# 0.13 X10^3/uL; Eosinophils% 1.9 % (0-5); Hemoglobin 13.4 g/dL (13.0-16.5); Lymphocyte # 1.17 X10^3/ul (0.83-4.51); Lymphocyte % 17.1 % (19-41); Mean Corp Hgb Conc 32.7 g/dL (32-36); Mean Corpuscular Hgb 32.1 pg (27.0-32.0); Mean Corpuscular Volume 98.1 fL (80-94); Monocyte# 0.47 X10^3/uL; Monocyte% 6.9 % (0-10); NRBC Flagged by Analyzer 0 % (0-5); Neutrophil % 73.2 % (47-70); Platelet Count 239 K/mm3 (150-450); RBC Distribution Width CV 15.1 % (11.6-14.6); RBC Distribution Width SD 54.4 fl (35.1-43.9); Red Blood Count 4.18 M/mm3 (4.6-6.2); White Blood Count 6.8 K/mm3 (4.4-11.0)
[2023-09-04 21:58] LABS: ALB/GLOB Ratio 1.1 RATIO (0.9-2.4); AST(SGOT) 11 U/L (15-37); Alanine Aminotransfer ALT/SGPT 23 U/L (16-61); Albumin, Serum 3.7 g/dL (3.2-5.0); Alkaline Phosphatase 110 U/L (45-117); Anion Gap 4 (5-15); BUN 38 mg/dL (7-18); BUN/Creat Ratio 29.2 RATIO (10-20); Calcium,Total 8.7 mg/dL (8.5-10.1); Chloride 110 mmol/L (98-107); EST Glomerular Filtration Rate 57 mL/min (>60); Est Glom Filt Rate - Afr Amer 69 mL/min (>60); Globulin 3.4 g/dL (2.2-4.2); Glucose 104 mg/dL (74-106); PSA,Total - Annual Screen 2.47 ng/mL (0.00-4.00); Potassium 4.3 mmol/L (3.5-5.1); Protein, Total 7.1 g/dL (6.4-8.2); Sodium Level 140 mmol/L (136-145); Thyroid Stim Hormone (TSH) 2.63 uIU/mL (0.358-3.74); Uric Acid 4.6 mg/dL (3.5-7.2)
[2023-09-04 22:43] LABS: Hemoglobin A1c 5.3 % (3.8-5.6)
== END | disposition home or self-care (01) ==
PROVIDERS: PCP Nurse Practitioner; Visit Provider Nurse Practitioner
DX: E11.9 Type 2 diabetes mellitus without complications (principal); M35.1 Other overlap syndromes; I48.91 Unspecified atrial fibrillation; I10 Essential (primary) hypertension; K21.9 Gastro-esophageal reflux disease without esophagitis; M10.9 Gout, unspecified; R35.0 Frequency of micturition; Z12.5 Encounter for screening for malignant neoplasm of prostate
CPT/HCPCS: 80053; 83036; 84153; 84443; 84550; 85025; G0103

== ENCOUNTER → 2023-10-16 | Outpatient (CLI) | payer MEDICARE, SELFPAY ==
[2023-10-16 22:27] LABS: Anion Gap 7 (5-15); BUN 49 mg/dL (7-18); Calcium,Total 8.5 mg/dL (8.5-10.1); Chloride 108 mmol/L (98-107); Creatinine, Serum 1.44 mg/dL (0.70-1.30); EST Glomerular Filtration Rate 51 mL/min (>60); Est Glom Filt Rate - Afr Amer 62 mL/min (>60); Glucose 198 mg/dL (74-106); Potassium 4.2 mmol/L (3.5-5.1); Sodium Level 141 mmol/L (136-145)
== END | disposition home or self-care (01) ==
PROVIDERS: PCP Nurse Practitioner; Referring Provider Internal Medicine Cardiovascular Disease; Visit Provider Internal Medicine Cardiovascular Disease
DX: I10 Essential (primary) hypertension (principal); I48.19 Other persistent atrial fibrillation
CPT/HCPCS: 80048

== ENCOUNTER → 2024-02-05 | Outpatient (CLI) | payer MEDICARE, SELFPAY ==
[2024-02-05 15:29] LABS: Anion Gap 4 (5-15); BUN 43 mg/dL (7-18); BUN/Creat Ratio 29.3 RATIO (10-20); Calcium,Total 9.3 mg/dL (8.5-10.1); Chloride 108 mmol/L (98-107); Creatinine, Serum 1.47 mg/dL (0.70-1.30); EST Glomerular Filtration Rate 50 mL/min (>60); Est Glom Filt Rate - Afr Amer 60 mL/min (>60); Glucose 151 mg/dL (74-106); Potassium 4.3 mmol/L (3.5-5.1); Sodium Level 141 mmol/L (136-145)
== END | disposition home or self-care (01) ==
LOC: LAB 14:32
PROVIDERS: PCP Nurse Practitioner; Referring Provider Internal Medicine Cardiovascular Disease; Visit Provider Internal Medicine Cardiovascular Disease
DX: Z51.81 Encounter for therapeutic drug level monitoring (principal); Z79.899 Other long term (current) drug therapy
CPT/HCPCS: 36415; 80048

== ENCOUNTER → 2024-07-02 | Outpatient (CLI) | payer MEDICARE, SELFPAY ==
[2024-07-02 20:41] LABS: Absolute Lymphocyte Count 1.33 X10^3/uL (0.83-4.51); Absolute Neutrophil Count 4.6 X10^3/uL (2.0-7.7); Basophil# 0.05 X10^3/uL; Basophil% 0.8 % (0-1); Eosinophil# 0.13 X10^3/uL; Hemoglobin 14.5 g/dL (13.0-16.5); Lymphocyte # 1.33 X10^3/ul (0.83-4.51); Lymphocyte % 20.2 % (19-41); Mean Corp Hgb Conc 32.2 g/dL (32-36); Mean Corpuscular Hgb 31.3 pg (27.0-32.0); Mean Corpuscular Volume 97.2 fL (80-94); Mean Platelet Vol. 12.6 fl (6.2-12.0); Monocyte# 0.44 X10^3/uL; Monocyte% 6.7 % (0-10); NRBC Flagged by Analyzer 0 % (0-5); Neutrophil # 4.62 X10^3/uL (2.7-7.7); Neutrophil % 70.1 % (47-70); Platelet Count 234 K/mm3 (150-450); RBC Distribution Width CV 14.2 % (11.6-14.6); RBC Distribution Width SD 51.3 fl (35.1-43.9); Red Blood Count 4.63 M/mm3 (4.6-6.2); White Blood Count 6.6 K/mm3 (4.4-11.0)
[2024-07-02 20:59] LABS: ALB/GLOB Ratio 1.1 RATIO (0.9-2.4); AST(SGOT) 14 U/L (15-37); Alanine Aminotransfer ALT/SGPT 12 U/L (16-61); Albumin, Serum 3.9 g/dL (3.2-5.0); Alkaline Phosphatase 85 U/L (45-117); Anion Gap 6 (5-15); BUN 37 mg/dL (7-18); BUN/Creat Ratio 21.4 RATIO (10-20); Chloride 106 mmol/L (98-107); Cholesterol 138 mg/dL (200); Creatinine, Serum 1.73 mg/dL (0.70-1.30); EST Glomerular Filtration Rate 41 mL/min (>60); Est Glom Filt Rate - Afr Amer 50 mL/min (>60); Globulin 3.4 g/dL (2.2-4.2); Glucose 127 mg/dL (74-106); High Density Lipoprotein 41 mg/dL; PSA,Total- Diagnostic 1.82 ng/mL (0.0-4.0); Protein, Total 7.3 g/dL (6.4-8.2); Sodium Level 138 mmol/L (136-145); Triglycerides 171 mg/dL; Very Low Density Lipoprotein 34 mg/dL (5-40)
[2024-07-02 21:08] LABS: Hemoglobin A1c 5.8 % (3.8-5.6)
== END | disposition home or self-care (01) ==
PROVIDERS: PCP Nurse Practitioner; Referring Provider Nurse Practitioner; Visit Provider Nurse Practitioner
DX: R35.0 Frequency of micturition (principal); I48.91 Unspecified atrial fibrillation; I48.92 Unspecified atrial flutter; E11.65 Type 2 diabetes mellitus with hyperglycemia; I10 Essential (primary) hypertension; E66.9 Obesity, unspecified
CPT/HCPCS: 80053; 80061; 83036; 84153; 85025

== ENCOUNTER → 2024-08-19 | Outpatient (CLI) | payer MEDICARE, SELFPAY ==
[2024-08-19 21:12] LABS: ALB/GLOB Ratio 1.1 RATIO (0.9-2.4); AST(SGOT) 19 U/L (15-37); Alanine Aminotransfer ALT/SGPT 28 U/L (16-61); Albumin, Serum 3.9 g/dL (3.2-5.0); Alkaline Phosphatase 101 U/L (45-117); Anion Gap 6 (5-15); BUN 37 mg/dL (7-18); BUN/Creat Ratio 23.7 RATIO (10-20); Calcium,Total 9.2 mg/dL (8.5-10.1); Chloride 104 mmol/L (98-107); Creatinine, Serum 1.56 mg/dL (0.70-1.30); EST Glomerular Filtration Rate 46 mL/min (>60); Est Glom Filt Rate - Afr Amer 56 mL/min (>60); Globulin 3.6 g/dL (2.2-4.2); Glucose 120 mg/dL (74-106); Protein, Total 7.5 g/dL (6.4-8.2); Sodium Level 137 mmol/L (136-145)
== END | disposition home or self-care (01) ==
PROVIDERS: PCP Nurse Practitioner; Referring Provider Nurse Practitioner; Visit Provider Nurse Practitioner
DX: N28.9 Disorder of kidney and ureter, unspecified (principal)
CPT/HCPCS: 80053

== ENCOUNTER → 2025-01-01 | Outpatient (CLI) | payer MEDICARE, SELFPAY ==
[2025-01-01 22:09] LABS: Absolute Lymphocyte Count 1.16 X10^3/uL (0.83-4.51); Absolute Neutrophil Count 4.8 X10^3/uL (2.0-7.7); Basophil# 0.04 X10^3/uL; Basophil% 0.6 % (0-1); Eosinophil# 0.12 X10^3/uL; Eosinophils% 1.8 % (0-5); Hematocrit 44.4 % (40-54); Hemoglobin 14.6 g/dL (13.0-16.5); Lymphocyte # 1.16 X10^3/ul (0.83-4.51); Lymphocyte % 17.6 % (19-41); Mean Corp Hgb Conc 32.9 g/dL (32-36); Mean Corpuscular Volume 97.4 fL (80-94); Mean Platelet Vol. 12.1 fl (6.2-12.0); Monocyte% 6.1 % (0-10); NRBC Flagged by Analyzer 0 % (0-5); Neutrophil # 4.84 X10^3/uL (2.7-7.7); Neutrophil % 73.6 % (47-70); Platelet Count 227 K/mm3 (150-450); RBC Distribution Width CV 14.9 % (11.6-14.6); RBC Distribution Width SD 53.7 fl (35.1-43.9); Red Blood Count 4.56 M/mm3 (4.6-6.2); White Blood Count 6.6 K/mm3 (4.4-11.0)
[2025-01-01 23:43] LABS: Hemoglobin A1c 5.4 % (<=5.6)
[2025-01-02 00:40] LABS: ALB/GLOB Ratio 1.6 RATIO (0.9-2.4); AST(SGOT) 22 U/L (<=37); Alanine Aminotransfer ALT/SGPT 17 U/L (<=46); Albumin, Serum 4.3 g/dL (3.4-4.8); Alkaline Phosphatase 95 U/L (40-129); Anion Gap 11 (5-15); BUN 35 mg/dL (4-19); Calcium 9.3 mg/dL (7.6-11.0); Carbon Dioxide 24.2 mmol/L (22.0-29.0); Chloride 104 mmol/L (96-108); Cholesterol 134 mg/dL (<=200); Creatinine, Serum 1.23 mg/dL (0.70-1.20); EST Glomerular Filtration Rate 61 (>60); Globulin 2.7 g/dL (2.2-4.2); Glucose 111 mg/dL (70-99); High Density Lipoprotein 49 mg/dL; Low Density Lipoprotein Calc. 61 mg/dL; PSA,Total - Annual Screen 1.49 ng/mL (0.02-4.00); Potassium 4.5 mmol/L (3.3-5.1); Protein, Total 6.9 g/dL (5.9-8.4); Sodium Level 140 mmol/L (133-145); Total Bilirubin 0.66 mg/dL (0.00-1.30); Triglycerides 124 mg/dL; Uric Acid 5.2 mg/dL (3.5-7.2); Very Low Density Lipoprotein 25 mg/dL (5-40); cholesterol:hdl ratio screen 2.76
== END | disposition home or self-care (01) ==
PROVIDERS: PCP Nurse Practitioner; Referring Provider Nurse Practitioner; Visit Provider Nurse Practitioner
DX: E11.65 Type 2 diabetes mellitus with hyperglycemia (principal); I48.91 Unspecified atrial fibrillation; I48.92 Unspecified atrial flutter; M1A.00X0 Idiopathic chronic gout, unspecified site, without tophus (tophi); Z12.5 Encounter for screening for malignant neoplasm of prostate; R35.0 Frequency of micturition; N28.9 Disorder of kidney and ureter, unspecified; I10 Essential (primary) hypertension; E78.5 Hyperlipidemia, unspecified
CPT/HCPCS: 80053; 80061; 83036; 84153; 84550; 85025; G0103

== ENCOUNTER → 2025-03-25 | Outpatient (CLI) | payer MEDICARE, SELFPAY ==
[2025-03-25 22:37] LABS: Anion Gap 13 (5-15); BUN 37 mg/dL (4-19); BUN/Creat Ratio 23.5 RATIO (10-20); Carbon Dioxide 23.5 mmol/L (21.0-32.0); Chloride 100 mmol/L (98-108); Creatinine, Serum 1.55 mg/dL (0.70-1.20); EST Glomerular Filtration Rate 46 (>60); Glucose 124 mg/dL (70-99); Potassium 4.2 mmol/L (3.3-5.1); Sodium Level 136 mmol/L (133-145)
== END | disposition home or self-care (01) ==
PROVIDERS: PCP Nurse Practitioner; Referring Provider Internal Medicine Cardiovascular Disease; Visit Provider Internal Medicine Cardiovascular Disease
DX: I10 Essential (primary) hypertension (principal); E11.9 Type 2 diabetes mellitus without complications
CPT/HCPCS: 80048

== ENCOUNTER → 2025-05-25 | Outpatient (CLI) | payer MEDICARE, SELFPAY ==
[2025-05-25 18:45] LABS: Anion Gap 13 (5-15); BUN 29 mg/dL (4-19); BUN/Creat Ratio 24.0 RATIO (10-20); Calcium,Total 9.1 mg/dL (7.6-11.0); Carbon Dioxide 22.2 mmol/L (21.0-32.0); Chloride 104 mmol/L (98-108); Glucose 122 mg/dL (70-99); Potassium 4.2 mmol/L (3.3-5.1)
== END | disposition home or self-care (01) ==
LOC: MTLAB 13:57
PROVIDERS: PCP Nurse Practitioner; Referring Provider Student in an Organized Health Care Education/Training Program; Visit Provider Student in an Organized Health Care Education/Training Program
DX: I10 Essential (primary) hypertension (principal); N28.9 Disorder of kidney and ureter, unspecified
CPT/HCPCS: 36415; 80048